=== PATIENT | male | born 1960 | race Caucasian/White ===

== ENCOUNTER → 2018-08-11 | Outpatient (CLI) | payer BC ==
--- NOTE | 2018-08-11 11:34 | PCVCIMAG ---
APPROVED REPORT Imaging Protocol: Rest Tc-99m/Stress Tc-99m 1 day Study performed: 08/11/2018 08:44:08 Indication: CAD Patient Location: Out-Patient Stress Nurse: Isabel Moss RN, Myla Cleaning RN [facility] Tech:Nai Espinokillian [facility] Ht: 6 ft 1 in Wt: 300 lbs BSA: 2.56 m2 HR: 83 bpm BP: 134/80 mmHg BMI: 39.57 Medical History Medical History: HTN, Hyperlipidemia, Former Smoker, CAD, Age Medications: Aspirin, Atorvastatin, Coreg (held 24h), Ramipril Allergies: No known drug allergies Previous Cardiac Procedures: PCI TO LAD & CX, OR Meds Held (24 hrs): Coreg Resting Data Rest SPECT myocardial perfusion imaging was performed in supine position 45 minutes following the intravenous injection of 13.4 mCi of Tc-99m Sestamibi. Time of rest injection: 814 Date: 08/11/2018 Administration Route: IV Administration Site: Right AC Exercise Stress At peak stress, the patient was injected intravenously with 43.9mCi of Tc-99m Sestamibi. Time of stress injection: 929 Date: 08/11/2018 Administration Route: IV Administration Site: Right AC Patient continued to exercise for 1.00 minute(s). Gated Stress SPECT was performed 30 minutes after stress injection. The images were gated to evaluate regional wall motion and calculate left ventricular ejection fraction. Stress Test Details Stress Test: Exercise stress testing was performed using a Luciano protocol. HRMax Heart Rate (APMHR): 161 bpm Resting HR: 83 bpmTarget HR (85% APMHR): 136 bpm Max HR Achieved: 142 bpm % of APMHR: 88 Recovery HR: 90 bpm BP Resting BP: 134/80 mmHg Max BP: 204/92 mmHg Recovery BP: 164/66 mmHg ECG Resting ECG: Sinus Rhythm Stress ECG: Sinus Rhythm ST Change: Non-ischemic Recovery ECG: SR Clinical Reason for Termination: Fatigue, Dyspnea Stress Symptoms: Dyspnea Exercise duration: 8 min 45 sec Exercise capacity: 10.4 METs Symptoms resolved during recovery. Study Quality Study: Good Artifact: Mild Soft tissue attenuation artifact Study Data Post stress, the left ventricular ejection was 57%.. SSS: 0 SRS: 2 SDS: 0 TID = 0.83. Perfusion There is a small area of mildly reduced uptake in the mid segment of the anterior wall which is seen on the stress images as well as the resting images. This area thickens and moves normally and is most consistent with attenuation artifact. Wall Motion Normal left ventricular wall motion. Nuclear Conclusion ECG Findings: negative for ischemia Clinical Findings: negative for ischemia Nuclear Findings: negative for ischemia Exercise Capacity: normal Left Ventricular Function: normal Risk Study: low This study is of low probability for inducible ischemia or prior infarct. Normal global and segmental LV systolic function. Artifact: Mild Soft tissue attenuation artifact
== END | disposition home or self-care (01) ==
LOC: PCVCIMAG 08:07
PROVIDERS: ATTEND Internal Medicine Cardiovascular Disease
DX: I25.10 Atherosclerotic heart disease of native coronary artery without angina pectoris (principal); I10 Essential (primary) hypertension; I25.2 Old myocardial infarction; E78.5 Hyperlipidemia, unspecified; E78.00 Pure hypercholesterolemia, unspecified; R60.9 Edema, unspecified; K21.9 Gastro-esophageal reflux disease without esophagitis; G47.33 Obstructive sleep apnea (adult) (pediatric); Z87.891 Personal history of nicotine dependence; Z79.82 Long term (current) use of aspirin; Z72.89 Other problems related to lifestyle
CPT/HCPCS: 78452; 93017; A9500